=== PATIENT | female | born 1965 | race Two or more races ===

== ENCOUNTER 2024-03-31 19:03 | Emergency (ER) | payer OTHER ==
[~2024-03-31] VITALS: Ht 157.5 cm; Wt 89.4 kg
[2024-03-31] MEDS ORDERED: ACETAMINOPHEN 325 MG TABLET ONE (20:24)
[2024-03-31] MEDS ORDERED: KETOROLAC TROMETHAMINE INJ 30 MG/ML VIAL ONE (20:24)
[2024-03-31] MEDS ORDERED: METHOCARBAMOL (500MG) 500 MG TABLET ONE (20:25)
[2024-03-31] MEDS: METHOCARBAMOL (750MG) 750 MG TABLET PO SCH (20:36)
[2024-03-31] MEDS: ACETAMINOPHEN 325 MG TABLET PO ONE (20:36)
[2024-03-31] MEDS: KETOROLAC TROMETHAMINE INJ 30 MG/ML VIAL IM ONE (20:54)
[2024-03-31] MEDS ORDERED: ACET325C7 PO (21:30)
[2024-03-31] MEDS ORDERED: METH-649 PO (21:30)
[2024-03-31] MEDS ORDERED: IBUP-1953 PO (21:30)
[2024-03-31 21:51] VITALS: BP 110/80; TEMP 98; O2SAT 99
== END 2024-03-31 21:52 | disposition home or self-care (01) ==
LOC: ER 19:05
DX: R07.81 Pleurodynia (principal); N64.4 Mastodynia; E78.00 Pure hypercholesterolemia, unspecified; F17.200 Nicotine dependence, unspecified, uncomplicated
CPT/HCPCS: 99283; 96372; 71111; J1885